=== PATIENT | male | born 2000 | race Caucasian/White ===

== ENCOUNTER 2025-02-04 15:35 | Outpatient (CLI) | payer OTHER ==
[2025-02-04 16:20] LABS: #Basophils Less than 0.03 10x3/uL (0.0-0.2); #Eosinophils 0.07 10x3/uL (0.0-0.7); #Monocytes 0.46 10x3/uL (0.11-0.59); #Neutrophils 3.95 10x3/uL (1.40-6.50); %Basophils 0.3 % (0.0-1.0); %Eosinophils 1.0 % (0.0-10.0); %Lymphocytes 33.4 % (21.0-51.0); %Monocytes 6.8 % (0.0-10.0); %Neutrophils 58.2 % (42.0-75.0); Hematocrit 42.5 % (42.0-52.0); Hemoglobin 14.1 g/dL (14.0-18.0); Mean Corpuscular Hemoglobin 29.3 pg (27.0-31.0); Mean Corpuscular Volume 88.4 fL (78.0-98.0); Platelet Count 284 10x3/uL (130-400); Red Blood Cell (RBC) Count 4.81 mill/uL (4.70-6.10); White Blood Cell (WBC) Count 6.79 10x3/uL (4.8-10.8)
== END 2025-02-04 15:36 | disposition home or self-care (01) ==
LOC: LABBT 15:35
PROVIDERS: ATTEND Orthopaedic Surgery
DX: Z01.812 Encounter for preprocedural laboratory examination (principal); M67.432 Ganglion, left wrist
CPT/HCPCS: 85025